=== PATIENT | female | born 2000 | race Caucasian/White ===

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

== ENCOUNTER 2020-08-07 20:08 | Emergency (ER) | payer OTHER ==
[2020-08-07 20:12] VITALS: BMI 21.9
[2020-08-07] MEDS ORDERED: ACETAMINOPHEN 1000 MG/100 ML VIAL (NON FORMULARY) IVPB ONE (20:32)
[2020-08-07] MEDS ORDERED: ACETAMINOPHEN INJECTION 100 ML IVPB ONE (20:50)
[2020-08-07 21:02] LABS: BASO % 0.6 % (0-2.0); EOS % 0.9 % (0-4.5); HEMATOCRIT 35.2 % (32.4-45.2); HEMOGLOBIN 10.8 GM/dL (10.7-15.3); MCH 21.5 pg (25.7-33.7); MCHC 30.6 g/dl (32.0-36.0); MEAN CELL VOLUME 70.4 fl (80-96); MEAN PLT VOLUME 10.4 fl (7.5-11.1); MONO % 6.2 % (3.8-10.2); NEUT % 75.3 % (42.8-82.8); PLATELET COUNT 398 K/MM3 (134-434); RDW 22.5 % (11.6-15.6); WHITE BLOOD COUNT 13.7 K/mm3 (4.0-10.0)
[2020-08-07 21:17] LABS: INR 1.11 (0.83-1.09); PROTHROMBIN TIME (PATIENT) 13.4 SEC (9.7-13.0)
[2020-08-07 21:20] LABS: ACTIVATED PTT 29.9 SECONDS (25.2-36.5)
[2020-08-07 21:26] LABS: POTASSIUM 4.1 mmol/L (3.5-5.1)
[2020-08-07 21:30] LABS: ALBUMIN 4.7 g/dl (3.4-5.0); CALCIUM 9.9 mg/dL (8.5-10.1)
[2020-08-07 21:34] LABS: CREATININE 0.9 mg/dL (0.55-1.3)
[2020-08-07 21:35] LABS: BILIRUBIN,TOTAL 0.3 mg/dL (0.2-1); TOT PROT 8.5 g/dl (6.4-8.2)
[2020-08-07 21:57] LABS: PH,URINE 7.5 (5.0-8.0); URINE APPEARANCE CLEAR; URINE BILIRUBIN NEGATIVE (NEGATIVE); URINE COLOR YELLOW; URINE GLUCOSE (UA) NEGATIVE (NEGATIVE); URINE KETONE NEGATIVE (NEGATIVE); URINE LEUK ESTERASE NEGATIVE (NEGATIVE); URINE NITRITE NEGATIVE (NEGATIVE); URINE PROTEIN NEGATIVE (NEGATIVE); URINE UROBILINOGEN 0.2 mg/dL (0.2-1.0)
[2020-08-07] MEDS ORDERED: CEFTRIAXONE 1 GM in DEXTROSE 5%-WATER - 50 ML IVPB ONE (22:01)
[2020-08-07 22:05] VITALS: TEMP 98.6
[2020-08-07 22:07] LABS: ANISOCYTOSIS 2+; MACROCYTOSIS 1+; OVALOCYTE 1+; PLATELET ESTIMATE ADEQUATE
[2020-08-07] MEDS ORDERED: CEFTRIAXONE 1 GM/50 ML BAG ONE (22:08)
[2020-08-08 00:17] VITALS: BP 107/72; PULSE 67
== END 2020-08-08 00:17 | disposition home or self-care (01) ==
LOC: JER 20:08
PROC: 3E0333Z Introduction of Anti-inflammatory into Peripheral Vein, Percutaneous Approach (ICD-10-PCS; principal; 2020-08-07)
PROC: 3E03329 Introduction of Other Anti-infective into Peripheral Vein, Percutaneous Approach (ICD-10-PCS; 2020-08-07)
DX: M85.451 Solitary bone cyst, right pelvis (principal); R10.30 Lower abdominal pain, unspecified
CPT/HCPCS: 36415; 74177-TC; 76856-TC; 80053; 81003; 84703; 85025; 85610; 85730; 86850; 86900; 86901; 87086; 99285-25; J0131; Q9967